=== PATIENT | female | born 1945 ===

== ENCOUNTER 2023-02-11 15:30 | Outpatient (CLI) | payer MEDICARE | END 2023-02-11 15:45 | disposition home or self-care (01) | LOC: LAB.N 15:30 | PROVIDERS: ATTEND Nurse Practitioner | DX: L03.90 Cellulitis, unspecified (principal) | CPT/HCPCS: 87070; 87205 ==

== ENCOUNTER 2023-02-25 14:43 | Outpatient (CLI) | payer MEDICARE ==
--- NOTE | 2023-02-25 15:04 | XRAY Report ---
PROCEDURE: Lumbar Spine 2 View INDICATIONS: LOW BACK PAIN TECHNIQUE: 2 views of the lumbar spine were acquired. COMPARISON: None. FINDINGS: Bones: 5 [id number] vertebrae are present. Levocurvature of the lumbar spine. Minimal retrolist hesis of L1-L2. Grade I anterolisthesis of L5 on S1. Degenerative changes of the lumbar spine. Decrea sed osseous mineralization. Facet arthropathy, worse in the lower lumbar spine. Possible L5-S1 pars i nterarticularis defects. Disc height loss, severe at L1-L2 and L3-L4 with endplate sclerosis and vacu um disc phenomenon. Anterior osteophyte formation. No vertebral body compression fractures. No susp icious bony lesions. Soft tissues: Overlying bowel gas pattern is normal. Calcifications projecting over the pelvis, may represent calcified fibroids. Surgical clips projecting over the right abdomen and right pelvis.. At herosclerotic vascular calcifications. IMPRESSION: Multilevel degenerative changes of the lumbar spine as described above. There is grade 1 anterolisthesis of L5 on S1 with possible pars interarticularis defects. Decreased osseous mineraliz ation. Reviewed by: Jason Melgar MD on 02/25/2023 3:02 PM PDT Approved by: Jason Melgar MD on 02/25/2023 3:02 PM PDT Station ID: [id number]
== END 2023-02-25 14:44 | disposition home or self-care (01) ==
LOC: DI 14:43
PROVIDERS: ATTEND Student in an Organized Health Care Education/Training Program
DX: M47.816 Spondylosis without myelopathy or radiculopathy, lumbar region (principal); M43.17 Spondylolisthesis, lumbosacral region